=== PATIENT | female | born 1985 | race Caucasian/White ===

== ENCOUNTER 2016-08-25 19:02 | Emergency (ER) | payer OTHER, SELFPAY ==
[2016-08-25 20:09] LABS: Bilirubin Negative (Negative); Blood, Urine Trace (Negative); Glucose, Urine (Dipstick) Negative (Negative); Ketone, Urine 15 mg/dL (Negative); Nitrite Negative (Negative); Protein, Urine (Dipstick) Negative (Neg-Trace); Urobilinogen 0.2 mg/dL (0.2-1.0)
[2016-08-25 20:12] LABS: Bacteria/HPF None Seen HPF (None Seen); RBC/HPF 0-3 HPF (0-3); WBC/HPF 0-3 HPF (0-3)
--- NOTE | 2016-08-25 20:27 | ERRECORD ---
[facility] EMERGENCY RECORD HPI FLANK PAIN (19:38 [facility]) CHIEF COMPLAINT: Patient presents for evaluation of flank pain. HISTORIAN: History provided by patient, 31F presents with complaints of right flank, back, and RUQ pain. States that the pain started last night, improved in the morning, and then returned again later this afternoon. Describes it as a cramping squeezing band like pain around her right upper abdomen and right mid back. Denies nausea, vomiting, or diarrhea. Describes some hesitancy with urination, but denies dysuria. Denies chest pain or shortness of breath. LOCATION FEMALE: Symptoms are localized, most severe in the right upper quadrant. QUALITY: Pain is dull in nature, described as cramping. TIME COURSE: Sudden onset of symptoms, are intermittent. ASSOCIATED WITH FEMALE: Associated with flank pain, Associated with nausea, Associated with urinary tract infection signs or symptoms, hesitancy. EXACERBATED BY: Patient's condition exacerbated by food. RELIEVED BY: Patient's condition relieved by nothing because patient has not tried anything for relief. ROS (19:40 [facility]) CONSTITUTIONAL: Negative constitutional review of systems, Historian denies chills, denies fever. EYES: Negative eye review of systems, Historian denies eye pain, denies vision changes. ENT: Negative ears, nose, throat review of systems, Historian denies rhinorrhea, denies sore throat, denies voice changes. CARDIOVASCULAR: Negative cardiovascular review of systems, Historian denies chest pain, denies palpitations. RESPIRATORY: Negative respiratory review of systems, Historian denies cough, denies shortness of breath. GI: Historian reports abdominal pain, RUQ abdominal pain radiating to the right back. GENITOURINARY FEMALE: Historian denies dysuria, denies frequency, reports hesitancy. MUSCULOSKELETAL: Negative musculoskeletal review of systems, Historian denies back pain, denies fall, denies injury. SKIN: Negative skin review of systems, Historian denies rash, denies skin changes. NEUROLOGIC: Negative neurologic review of systems, Historian denies headache, denies mental status changes, denies paralysis, denies paresthesias, denies sensory changes. HEMO/LYMPHATIC: Normal hematologic/lymphatic system review, Historian denies abnormal blood clotting. ALLERGIC/IMMUNOLOGIC: Normal allergy/immunologic system review, Historian denies frequent infections. PAST MEDICAL HISTORY (19:20 [facility]) MEDICAL HISTORY: Flu vaccine up to date, Date of immunization: &a-1R&a+25V*p+0X*m7387R*c202B*c15G*c2P*p-0X&a-25V&a+1R Name: Debra lOmstead : 1985 F31 MedRec: [id number] AcctNum: [id number] Prepared: [facility] Aug 25, 2016 20:30 by Interface Page 1 of 4 pMD [facility] EMERGENCY RECORD 2016, Tetanus immunization up to date, Pneumococcal vaccine not up to date, Flu vaccine up to date, Date of immunization: 2013, Tetanus immunization up to date, Date of immunization: within last 10 years, Pneumococcal vaccine not up to date, Past medical history includes genitourinary history, urinary tract infection, Past medical history includes renal disease, kidney stone(s). Past medical history is not significant. 02/22/15. Reviewed 08/25/16. FEMALE SURGICAL HISTORY: Surgical history of appendectomy. Verified 02/22/15. Verified 08/25/16. PSYCHIATRIC HISTORY: Psychiatric history includes, depression, bipolar disorder, not currently under treatment Verified 02/22/15. Verified 08/25/16. SOCIAL HISTORY: Patient denies alcohol use, Patient denies drug use, Patient has no smoking history. Verified //. KNOWN ALLERGIES Cat/Feline Products (Unconfirmed): - Entered category: Cat/Feline Product Derivatives -- Entered category: Cat/Feline Product Derivatives -- SNEEZING Penicillins: Reaction: Rash, Severity: Moderate, Source: Patient CURRENT MEDICATIONS (19:15 [facility]) None VITAL SIGNS (19:15 [facility]) VITAL SIGNS: BP: 132/81, Pulse: 88 (Regular), Resp: 16 (Non-Labored), Temp: 98.3 (Oral), Pain: 9 (Intermittent), O2 sat: 98 on Room Air, Time: 08/25/2016 19:15. PHYSICAL EXAM (19:40 [facility]) CONSTITUTIONAL: Vital signs reviewed, Patient afebrile, Pulse normal, Blood pressure normal, Respiratory rate normal, Patient appears non toxic, Patient appears pain free, Patient alert and oriented to person, place and time. HEAD: Head exam normal, Head exam included findings of head atraumatic, normocephalic. EYES: Eye exam normal, Eye exam included findings of eyelids normal to inspection, Pupils equally round and reactive to light, Extraocular muscles intact, no nystagmus. ENT: ENT exam normal, Ear exam normal, external ear normal, tympanic membranes normal, no bleeding, Pharynx exam normal, Uvula exam normal, Tonsil exam normal, Mouth exam normal, mucous membranes moist, teeth normal. NECK: Neck exam normal, Neck exam included findings of normal range of motion, Trachea midline, no meningeal signs, no cervical adenopathy, no tenderness. RESPIRATORY CHEST: Respiratory and chest exam normal, Respiratory exam included findings of no respiratory distress, Breath sounds clear. CARDIOVASCULAR: Cardiovascular assessment normal, Cardiovascular &a-1R&a+25V*p+0X*h5369D*c202B*c15G*c2P*p-0X&a-25V&a+1R Name: Debra Olmstead : 1985 F31 MedRec: [id number] AcctNum: [id number] Prepared: Melanie Aug 25, 2016 20:30 by Interface Page 2 of 4 pMD [facility] EMERGENCY RECORD exam included findings of heart rate regular rate and rhythm, Heart sounds normal. ABDOMEN FEMALE: Abdominal exam included findings of abdomen tender, to the right upper quadrant, moderate intensity, Bowel sounds normal, no distension, no mass, no pulsatile masses, no peritoneal signs, no rigidity, no guarding, no rebound, Rovsing's sign absent. BACK: Back exam normal, Back exam included findings of normal inspection, range of motion normal, no tenderness. UPPER EXTREMITY: Upper extremity exam normal, Upper extremity exam included findings of inspection normal, Range of motion normal, Motor strength normal, Sensation intact, Radial pulse normal. LOWER EXTREMITY: Lower extremity exam normal, Lower extremity exam included findings of inspection normal, Range of motion normal, Motor strength normal, Sensation intact, Posterior tibial pulse normal, Pedal pulse normal. NEURO: Neuro exam normal, Neuro exam findings include patient oriented to person, place and time, Speech normal, Gait normal, Cranial nerves intact, no focal motor deficits, no focal sensory deficits. SKIN: Skin exam normal, Skin exam included findings of skin warm, dry, and normal in color, no rash. PSYCHIATRIC: Psychiatric exam normal, Normal affect. DOCTOR NOTES (20:20 [facility]) RE-EVALUATION: The patient's condition has improved. TEXT: Patient presented with concern for hepatobiliary pathology based on her history and physical exam. Secondary concern for pyelonephritis. Based on her physical exam findings, there was low concern for appendicitis or ovarian pathology. Bedside US showed a gallstone but no evidence of cholecystitis. Did not show any evidence of hydronephrosis, and her urine was not consistent with UTI or pyelo. It is possible she has a small kidney stone, but more likely that her pain is biliary colic. Provided counseling, appropriate for outpatient management. PATIENT STATUS: Patient has improved since arrival to emergency department. PATIENT PLAN: The patient will be discharged, The patient will follow up with primary care physician. DATA REVIEWED: Lab data reviewed, Xray data reviewed. PROBLEM LIST No recorded problems DIAGNOSIS (20:18 [facility]) FINAL: PRIMARY: biliary colic. PRESCRIPTION No recorded prescriptions &a-1R&a+25V*p+0X*f0069R*c202B*c15G*c2P*p-0X&a-25V&a+1R Name: Debra Olmstead : 1985 F31 MedRec: [id number] AcctNum: [id number] Prepared: MonAug 25, 2016 20:30 by Interface Page 3 of 4 pMD [facility] EMERGENCY RECORD DISPOSITION PATIENT: Disposition Type: Discharge, Disposition: *Discharge Home. [facility] Patient left the department. (20:24 [facility]) Simons: CFRA=ESTHELA Eaton, Maria Fernanda JC=MD Abena, Dawson MVIL=ESTHELA Umana, Clementine &a-1R&a+25V*p+0X*h2387A*c202B*c15G*c2P*p-0X&a-25V&a+1R Name: Debra Olmstead : 1985 F31 MedRec: [id number] AcctNum: [id number] Prepared: [facility] Aug 25, 2016 20:30 by Interface Page [address] [facility]
--- NOTE | 2016-08-25 20:32 | PICIS ---
[facility] EMERGENCY RECORD TRIAGE (19:24) PATIENT: PHONE: . (19:24) NAME: Debra Olmstead, AGE: 31, GENDER: female, : Melanie 1985, TIME OF GREET: MonAug 25, 2016 19:03, PREFERRED LANGUAGE: [place] Islander, ETHNICITY: Not or , ECODE BILLING MAP: [place], SSN: [id number], Zip Code: [address], KG WEIGHT: [phone] (est.), , , PERSON ID: [id number], PCP: None. (19:15 CFRA) PAYMENT: [facility] Self Pay. (19:42) COMPLAINT: abdominal, back pain. (19:15 [facility]) ADMISSION: URGENCY: 3 Urgent, ADMISSION SOURCE: Work, TRANSPORT: CAR, BED: -02. (19:15 [facility]) ASSESSMENT: Assessment: Pt reports pain on right side radiating from below ribs to the back. Dysuria. No vaginal discharge. Nausea, no vomiting. No fever or diarrhea. Pt denies burning urination or hematuria, Symptoms began yesterday. (19:20 [facility]) PAIN: Patient complains of pain described as, cramping, on a scale 0-10 patient rates pain as 9, Location right side upper abdomen to right flank, Pain is intermittent, Onset was yesterday, Aggravating factors:, Aggravating factors include sitting down, Relieving factors present, Relieving factors include standing up, Notes: Tylenol ES x2 tabs 4 hours [employer]. (19:20 [facility]) IMMUNIZATIONS: Flu vaccine up to date, Date of immunization: 2015, Tetanus immunization up to date, Date of immunization: w/in 10 years, Pneumococcal vaccine not up to date. (19:20 [facility]) SIRS SCORING: Heart Rate 55-109 (0), Temp range 96.8-101.1 (0), respiratory rate 12-24 (0), Mental Status altered: no (0). (19:20 [facility]) LMP: Last menstrual period: 08/05/2016. (19:20 [facility]) PROVIDERS: TRIAGE NURSE: Maria Fernanda Eaton RN. (19:15 [facility]) VITAL SIGNS: BP 132/81, Pulse 88, (Regular), Resp 16, (Non-Labored), Temp 98.3, (Oral), Pain 9, (Intermittent), O2 Sat 98, on Room Air, Time 08/25/2016 19:15. (19:15 CFRA) PREVIOUS VISIT ALLERGIES: Penicillins. (19:15 CFRA) Penicillins. (19:20 CFRA) KNOWN ALLERGIES Cat/Feline Products (Unconfirmed): - Entered category: Cat/Feline Product Derivatives -- Entered category: Cat/Feline Product Derivatives -- SNEEZING Penicillins: Reaction: Rash, Severity: Moderate, Source: Patient CURRENT MEDICATIONS (19:15 [facility]RA) None VITAL SIGNS (19:15 [facility]) VITAL SIGNS: BP: 132/81, Pulse: 88 (Regular), Resp: 16 (Non-Labored), Temp: 98.3 (Oral), Pain: 9 (Intermittent), O2 sat: 98 on Room Air, Time: 08/25/2016 19:15. &a-1R&a+25V*p+0X*n8333G*c202B*c15G*c2P*p-0X&a-25V&a+1R Name: Debra Olmstead : 1985 F31 MedRec: [id number] AcctNum: [id number] Prepared: [facility] Aug 25, 2016 20:36 by Interface Page [address] [facility] EMERGENCY RECORD NURSING PROCEDURE: DISCHARGE NOTE (20:22 [facility]) DISCHARGE: Patient discharged to home, ambulating without assistance, driving self, unaccompanied, Summary of Care printed/ provided, Patient requested and was provided an electronic copy of Discharge Instructions, Transition record given to patient, Discharge instructions given to patient, Above person(s) verbalized understanding of discharge instructions and follow-up care. BELONGINGS: Belongings and valuables with patient at time of discharge include:. ORDER DETAILS Order Name: Test, Urine (BHCG), Status: Active, Time: 19:37 08/25/2016, User: CFRA, - Ordered for: MD Kraft Jason, - Entered by: ESTHELA Eaton [place] - [facility] Aug 25, 2016 19:37, - Quantity: 1, Order Name: Urinalysis with Microscopic, Status: Active, Time: 19:37 08/25/2016, User: CFRA, - Ordered for: MD Kraft Jason, - Entered by: ESTHELA Eaton [place] - [facility] Aug 25, 2016 19:37, - Quantity: 1. HPI FLANK PAIN (19:38 [facility]) CHIEF COMPLAINT: Patient presents for evaluation of flank pain. HISTORIAN: History provided by patient, 31F presents with complaints of right flank, back, and RUQ pain. States that the pain started last night, improved in the morning, and then returned again later this afternoon. Describes it as a cramping squeezing band like pain around her right upper abdomen and right mid back. Denies nausea, vomiting, or diarrhea. Describes some hesitancy with urination, but denies dysuria. Denies chest pain or shortness of breath. LOCATION FEMALE: Symptoms are localized, most severe in the right upper quadrant. QUALITY: Pain is dull in nature, described as cramping. TIME COURSE: Sudden onset of symptoms, are intermittent. ASSOCIATED WITH FEMALE: Associated with flank pain, Associated with nausea, Associated with urinary tract infection signs or symptoms, hesitancy. EXACERBATED BY: Patient's condition exacerbated by food. RELIEVED BY: Patient's condition relieved by nothing because patient has not tried anything for relief. ROS (19:40 [facility]) CONSTITUTIONAL: Negative constitutional review of systems, Historian denies chills, denies fever. EYES: Negative eye review of systems, Historian denies eye pain, denies vision changes. &a-1R&a+25V*p+0X*a8302B*c202B*c15G*c2P*p-0X&a-25V&a+1R Name: Debra Olmstead : 1985 F31 MedRec: [id number] AcctNum: [id number] Prepared: Melanie Aug 25, 2016 20:36 by Interface Page [address] [facility] EMERGENCY RECORD ENT: Negative ears, nose, throat review of systems, Historian denies rhinorrhea, denies sore throat, denies voice changes. CARDIOVASCULAR: Negative cardiovascular review of systems, Historian denies chest pain, denies palpitations. RESPIRATORY: Negative respiratory review of systems, Historian denies cough, denies shortness of breath. GI: Historian reports abdominal pain, RUQ abdominal pain radiating to the right back. GENITOURINARY FEMALE: Historian denies dysuria, denies frequency, reports hesitancy. MUSCULOSKELETAL: Negative musculoskeletal review of systems, Historian denies back pain, denies fall, denies injury. SKIN: Negative skin review of systems, Historian denies rash, denies skin changes. NEUROLOGIC: Negative neurologic review of systems, Historian denies headache, denies mental status changes, denies paralysis, denies paresthesias, denies sensory changes. HEMO/LYMPHATIC: Normal hematologic/lymphatic system review, Historian denies abnormal blood clotting. ALLERGIC/IMMUNOLOGIC: Normal allergy/immunologic system review, Historian denies frequent infections. PAST MEDICAL HISTORY (19:20 [facility]) MEDICAL HISTORY: Flu vaccine up to date, Date of immunization: 2015, Tetanus immunization up to date, Pneumococcal vaccine not up to date, Flu vaccine up to date, Date of immunization: 2013, Tetanus immunization up to date, Date of immunization: within last 10 years, Pneumococcal vaccine not up to date, Past medical history includes genitourinary history, urinary tract infection, Past medical history includes renal disease, kidney stone(s). Past medical history is not significant. 02/22/15. Reviewed 08/25/16. FEMALE SURGICAL HISTORY: Surgical history of appendectomy. Verified 02/22/15. Verified 08/25/16. PSYCHIATRIC HISTORY: Psychiatric history includes, depression, bipolar disorder, not currently under treatment Verified 02/22/15. Verified 08/25/16. SOCIAL HISTORY: Patient denies alcohol use, Patient denies drug use, Patient has no smoking history. Verified //. PHYSICAL EXAM (19:40 [facility]) CONSTITUTIONAL: Vital signs reviewed, Patient afebrile, Pulse normal, Blood pressure normal, Respiratory rate normal, Patient appears non toxic, Patient appears pain free, Patient alert and oriented to person, place and time. HEAD: Head exam normal, Head exam included findings of head atraumatic, normocephalic. EYES: Eye exam normal, Eye exam included findings of eyelids normal to inspection, Pupils equally round and reactive to light, Extraocular muscles intact, no nystagmus. ENT: ENT exam normal, Ear exam normal, external ear normal, &a-1R&a+25V*p+0X*q2875T*c202B*c15G*c2P*p-0X&a-25V&a+1R Name: Debra Olmstead : 1985 F31 MedRec: [id number] AcctNum: [id number] Prepared: MonAug 25, 2016 20:36 by Interface Page [address] [facility] EMERGENCY RECORD tympanic membranes normal, no bleeding, Pharynx exam normal, Uvula exam normal, Tonsil exam normal, Mouth exam normal, mucous membranes moist, teeth normal. NECK: Neck exam normal, Neck exam included findings of normal range of motion, Trachea midline, no meningeal signs, no cervical adenopathy, no tenderness. RESPIRATORY CHEST: Respiratory and chest exam normal, Respiratory exam included findings of no respiratory distress, Breath sounds clear. CARDIOVASCULAR: Cardiovascular assessment normal, Cardiovascular exam included findings of heart rate regular rate and rhythm, Heart sounds normal. ABDOMEN FEMALE: Abdominal exam included findings of abdomen tender, to the right upper quadrant, moderate intensity, Bowel sounds normal, no distension, no mass, no pulsatile masses, no peritoneal signs, no rigidity, no guarding, no rebound, Rovsing's sign absent. BACK: Back exam normal, Back exam included findings of normal inspection, range of motion normal, no tenderness. UPPER EXTREMITY: Upper extremity exam normal, Upper extremity exam included findings of inspection normal, Range of motion normal, Motor strength normal, Sensation intact, Radial pulse normal. LOWER EXTREMITY: Lower extremity exam normal, Lower extremity exam included findings of inspection normal, Range of motion normal, Motor strength normal, Sensation intact, Posterior tibial pulse normal, Pedal pulse normal. NEURO: Neuro exam normal, Neuro exam findings include patient oriented to person, place and time, Speech normal, Gait normal, Cranial nerves intact, no focal motor deficits, no focal sensory deficits. SKIN: Skin exam normal, Skin exam included findings of skin warm, dry, and normal in color, no rash. PSYCHIATRIC: Psychiatric exam normal, Normal affect. LAB INTERPRETATION (20:20 [facility]) INTERPRETATION: I reviewed the lab results, Urinalysis normal, contaminated UA,. EVENTS TRANSFER: Triage to Emergency Emergency Room -. ([facility] Aug 25, 2016 19:15 CFRA) Removed from Emergency Emergency Room -02. (20:24 [place]) DOCTOR NOTES (20:20 [facility]) RE-EVALUATION: The patient's condition has improved. TEXT: Patient presented with concern for hepatobiliary pathology based on her history and physical exam. Secondary concern for pyelonephritis. Based on her physical exam findings, there was low concern for appendicitis or ovarian pathology. Bedside US showed a gallstone but no evidence of cholecystitis. Did not show any &a-1R&a+25V*p+0X*u2013W*c202B*c15G*c2P*p-0X&a-25V&a+1R Name: Debra Olmstead : 1985 F31 MedRec: [id number] AcctNum: [id number] Prepared: Melanie Aug 25, 2016 20:36 by Interface Page [address] [facility] EMERGENCY RECORD evidence of hydronephrosis, and her urine was not consistent with UTI or pyelo. It is possible she has a small kidney stone, but more likely that her pain is biliary colic. Provided counseling, appropriate for outpatient management. PATIENT STATUS: Patient has improved since arrival to emergency department. PATIENT PLAN: The patient will be discharged, The patient will follow up with primary care physician. DATA REVIEWED: Lab data reviewed, Xray data reviewed. PROBLEM LIST No recorded problems DIAGNOSIS (20:18 [facility]) FINAL: PRIMARY: biliary colic. DISPOSITION PATIENT: Disposition Type: Discharge, Disposition: *Discharge Home. (20:18 [facility]) Patient left the department. (20:24 [facility]) INSTRUCTION (20:18 [facility]) DISCHARGE: BILIARY COLIC W/GALLSTONE (PRESUMD). SPECIAL: Avoid fatty foods. Drink more water, follow up with your primary doctor. Return to the ED if your pain worsens or changes. PRESCRIPTION No recorded prescriptions IMAGING *DISCHARGE INSTRUCTIONS RECEIPT: Image captured from scanner. (20:25 MVIL) *SUPPLY CHARGE SHEET: Image captured from scanner. (20:26 MVIL) ADMIN (20:22 [facility]) DIGITAL SIGNATURE: MD Kraft Jason. Simons: CFRA=ESTHELA Eaton, Maria Fernanda JJAC=MD Kraft Jason MVIL=ESTHELA Umana Mariella &a-1R&a+25V*p+0X*z7927M*c202B*c15G*c2P*p-0X&a-25V&a+1R Name: Debra Olmstead : 1985 F31 MedRec: [id number] AcctNum: [id number] Prepared: Melanie Aug 25, 2016 20:36 by Interface Page 5 of 5 pMD [facility]TDD
== END 2016-08-25 20:17 | disposition home or self-care (01) ==
LOC: BURERS 19:02
DX: K80.50 Calculus of bile duct without cholangitis or cholecystitis without obstruction (principal); F31.9 Bipolar disorder, unspecified; Z90.49 Acquired absence of other specified parts of digestive tract; Z87.442 Personal history of urinary calculi
CPT/HCPCS: 81001; 81025; 99284

== ENCOUNTER 2016-12-26 08:36 | Emergency (ER) | payer OTHER, SELFPAY ==
[2016-12-26] MEDS ORDERED: Bupivacaine 0.5% 10 ML VIAL ONE (08:50)
== END 2016-12-26 09:19 | disposition home or self-care (01) ==
LOC: BURERS 08:36
DX: K04.7 Periapical abscess without sinus (principal); F31.9 Bipolar disorder, unspecified
CPT/HCPCS: 96372; J3490

== ENCOUNTER 2017-05-26 19:33 | Emergency (ER) | payer SELFPAY ==
[2017-05-26 20:39] LABS: Bilirubin Negative (Negative); Blood, Urine Trace (Negative); Clarity Slightly Cloudy (Clear); Glucose, Urine (Dipstick) Negative (Negative); Leukocyte Moderate (Negative); Nitrite Negative (Negative); Protein, Urine (Dipstick) Negative (Neg-Trace); Specific Gravity, Urine 1.025 (1.005-1.030); Urobilinogen 0.2 mg/dL (0.2-1.0); pH, Urine 5.5 (5.0-9.0)
[2017-05-26 20:41] LABS: Bacteria/HPF 1+ HPF (None Seen); Crystals/HPF None Seen HPF (Negative); Hyaline Casts/LPF NONE SEEN LPF (0-3 Hyaline); Oval Fat Bodies/HPF None Seen HPF (None Seen); RBC/HPF 0-3 HPF (0-3); Renal Epithelial None Seen HPF (0-3); Sperm/HPF None Seen HPF (None Seen); Transitional Epithelial NONE SEEN HPF (0-3); Trichomonas/HPF None Seen HPF (None Seen); Yeast-All Forms None Seen HPF (None Seen)
[2017-05-26 20:42] LABS: Other Casts/LPF None Seen LPF (0-3 Hyaline); Pregnancy Test - Urine (BHCG) Negative (Negative)
[2017-05-26 20:43] LABS: Pregu Control Background? CLEAR/WHITE (CLR/WHITE); Pregu Control Bar Appear? YES (CONTROL BAR); Specific Gravity 1.025 (1.002-1.036)
[2017-05-26] MEDS ORDERED: Cephalexin 250 MG CAP ONE (21:07)
[2017-05-26 21:13] LABS: ALT (SGPT) 15 U/L (8-55); AST (SGOT) 13 U/L (5-34); Albumin 4.1 g/dL (3.5-5.0); Alkaline Phosphatase 75 U/L (40-150); Anion Gap 15 mmol/L (10-20); BUN (Urea Nitrogen) 13 mg/dL (7.0-18.7); Bilirubin, Total 0.2 mg/dL (0.2-1.2); Calc. Creatinine Clearance 0 mL/min (70-130); Calcium 9.1 mg/dL (7.8-10.44); Carbon Dioxide 21 mmol/L (22-29); Chloride 110 mmol/L (98-107); Estimated GFR-MDRD Greater than 90; Glucose 112 mg/dL (70-105); Potassium 3.5 mmol/L (3.5-5.1); Protein, Total 7.1 g/dL (6.0-8.3); Sodium 142 mmol/L (136-145)
[2017-05-26 21:22] LABS: #Basophils 0.1 thou/uL (0.0-0.2); #Eosinphils 0.2 thou/uL (0.0-0.7); #Monocytes 0.5 thou/uL (0.11-0.59); #Neutrophils 6.9 thou/uL (1.40-6.50); %Basophils 0.8 % (0.0-1.0); %Lymphocytes 20.6 % (21.0-51.0); %Monocytes 4.8 % (0.0-10.0); %Neutrophils 71.8 % (42.0-75.0); Hemoglobin 10.4 g/dL (12.0-16.0); MDiff Complete? YES; Mean Corpuscular HGB CONC 30.7 g/dL (32.0-36.0); Mean Corpuscular Hemoglobin 23.4 pg (27.0-31.0); Mean Corpuscular Volume 76.3 fl (81.0-99.0); Mean Platelet Volume 6.5 fL (7.4-10.4); Microcytosis SLIGHT = 6-15 cells (100X) (0-5/hpf); Ovalocytes SLIGHT = 2-5 cells (100X) (0-1/hpf); PLT Morphology Comment Appears Adequate; Platelet Count 327 thou/uL (130-400); RBC Distribution Width 14.1 % (11.5-14.5); Red Blood Cell (RBC) Count 4.44 mill/uL (4.20-5.40); Small Platelets SLIGHT; White Blood Cell (WBC) Count 9.7 thou/uL (4.8-10.8)
== END 2017-05-26 21:58 | disposition home or self-care (01) ==
LOC: BURERS 19:33
DX: D64.9 Anemia, unspecified (principal); N39.0 Urinary tract infection, site not specified; F31.9 Bipolar disorder, unspecified
CPT/HCPCS: 80053; 81003; 81015; 81025; 85025; 96360

== ENCOUNTER 2017-06-26 07:49 | Emergency (ER) | payer SELFPAY ==
[2017-06-26] MEDS ORDERED: Ketorolac Tromethamine 30 MG/ML VIAL ONE (08:14)
[2017-06-26 08:16] LABS: Bilirubin Negative (Negative); Blood, Urine Trace (Negative); Clarity Slightly Cloudy (Clear); Glucose, Urine (Dipstick) Negative (Negative); Leukocyte Small (Negative); Nitrite Negative (Negative); Protein, Urine (Dipstick) Negative (Neg-Trace); Urobilinogen 0.2 mg/dL (0.2-1.0); pH, Urine 5.5 (5.0-9.0)
[2017-06-26 08:17] LABS: Pregnancy Test - Urine (BHCG) Negative (Negative); Pregu Control Background? CLEAR/WHITE (CLR/WHITE); Pregu Control Bar Appear? YES (CONTROL BAR)
[2017-06-26 08:25] LABS: Bacteria/HPF 1+ HPF (None Seen); Crystals/HPF 1+ AMORPH URATES HPF (Negative); RBC/HPF 0-3 HPF (0-3)
[2017-06-26 08:34] LABS: #Basophils 0.1 thou/uL (0.0-0.2); #Eosinphils 0.1 thou/uL (0.0-0.7); #Lymphocytes 1.4 thou/uL (1.20-3.40); #Neutrophils 15.9 thou/uL (1.40-6.50); %Basophils 0.4 % (0.0-1.0); %Eosinophils 0.3 % (0.0-10.0); %Lymphocytes 7.6 % (21.0-51.0); %Monocytes 5.4 % (0.0-10.0); %Neutrophils 86.3 % (42.0-75.0); Hemoglobin 10.9 g/dL (12.0-16.0); Mean Corpuscular HGB CONC 30.4 g/dL (32.0-36.0); Mean Corpuscular Hemoglobin 23.3 pg (27.0-31.0); Mean Corpuscular Volume 76.4 fl (81.0-99.0); Mean Platelet Volume 6.4 fL (7.4-10.4); Platelet Count 371 thou/uL (130-400); RBC Distribution Width 14.3 % (11.5-14.5); White Blood Cell (WBC) Count 18.4 thou/uL (4.8-10.8)
[2017-06-26 08:42] LABS: ALT (SGPT) 16 U/L (8-55); AST (SGOT) 12 U/L (5-34); Albumin 4.2 g/dL (3.5-5.0); Alkaline Phosphatase 83 U/L (40-150); Anion Gap 12 mmol/L (10-20); BUN (Urea Nitrogen) 11 mg/dL (7.0-18.7); Bilirubin, Total 0.4 mg/dL (0.2-1.2); Calc. Creatinine Clearance 0 mL/min (70-130); Calcium 8.9 mg/dL (7.8-10.44); Carbon Dioxide 25 mmol/L (22-29); Chloride 105 mmol/L (98-107); Estimated GFR-MDRD Greater than 90; Globulin 3.6 g/dL (2.4-3.5); Glucose 107 mg/dL (70-105); Lipase 11 U/L (8-78); Potassium 3.7 mmol/L (3.5-5.1); Protein, Total 7.8 g/dL (6.0-8.3); Sodium 138 mmol/L (136-145)
[2017-06-26 08:54] LABS: MDiff Complete? YES; Microcytosis SLIGHT = 6-15 cells (100X) (0-5/hpf); PLT Morphology Comment Appears Adequate
[2017-06-26] MEDS ORDERED: Doxycycline Hyclate 100 MG TAB ONE (08:57)
[2017-06-26] MEDS ORDERED: cefTRIAXone\\ROCEPHIN 500 MG VIAL ONE (08:57)
[2017-06-26] MEDS ORDERED: Sterile Water 10 ML ONE (08:59)
== END 2017-06-26 10:23 | disposition home or self-care (01) ==
LOC: BURERS 07:49
DX: N73.9 Female pelvic inflammatory disease, unspecified (principal)
CPT/HCPCS: 36415; 80053; 81003; 81015; 81025; 83605; 83690; 84443; 85025; 87040; 87480; 87491; 87510; 87591; 87660; 96361; 96374; 96375; A4216; J0696; J1885

== ENCOUNTER 2020-06-30 22:04 | Emergency (ER) | payer SELFPAY ==
[2020-06-30] MEDS ORDERED: Sodium Chloride 0.9% 0 ML ONE (22:33)
[2020-06-30] MEDS ORDERED: Metoclopramide HCl 10 MG/2 ML VIAL ONE (22:33)
[2020-06-30] MEDS ORDERED: Ketorolac Tromethamine 30 MG/ML VIAL ONE (22:33)
[2020-06-30] MEDS ORDERED: diphenhydrAMINE 50 MG/ML VIAL ONE (22:34)
[2020-06-30 22:56] LABS: #Basophils 0.1 thou/uL (0.0-0.2); #Eosinphils 0.2 thou/uL (0.0-0.7); #Lymphocytes 2.6 thou/uL (1.20-3.40); #Monocytes 0.6 thou/uL (0.11-0.59); #Neutrophils 6.1 thou/uL (1.40-6.50); %Basophils 0.9 % (0.0-1.0); %Eosinophils 2.3 % (0.0-10.0); %Lymphocytes 27.5 % (21.0-51.0); %Monocytes 5.9 % (0.0-10.0); %Neutrophils 63.4 % (42.0-75.0); Hemoglobin 12.2 g/dL (12.0-16.0); Mean Corpuscular HGB CONC 30.4 g/dL (32.0-36.0); Mean Corpuscular Hemoglobin 26.2 pg (27.0-31.0); Mean Corpuscular Volume 85.9 fL (78.0-98.0); Mean Platelet Volume 7.1 fL (7.4-10.4); Platelet Count 371 thou/uL (130-400); RBC Distribution Width 14.9 % (11.5-14.5); Red Blood Cell (RBC) Count 4.64 mill/uL (4.20-5.40); White Blood Cell (WBC) Count 9.6 thou/uL (4.8-10.8)
[2020-06-30 23:03] LABS: BHCG - Serum Negative (NEGATIVE); Pregs Control Background? CLEAR/WHITE (CLR/WHITE); Pregs Control Bar Appear? YES (CONTROL BAR)
[2020-06-30 23:08] LABS: ALT (SGPT) 12 U/L (8-55); AST (SGOT) 11 U/L (5-34); Albumin 4.1 g/dL (3.5-5.0); Alkaline Phosphatase 70 U/L (40-110); Anion Gap 17 mmol/L (10-20); BUN (Urea Nitrogen) 10 mg/dL (7.0-18.7); Bilirubin, Total Less than 0.2 mg/dL (0.2-1.2); Calc. Creatinine Clearance 0 mL/min (70-130); Calcium 8.7 mg/dL (7.8-10.44); Carbon Dioxide 24 mmol/L (22-29); Chloride 106 mmol/L (98-107); Globulin 3.3 g/dL (2.4-3.5); Glucose 91 mg/dL (70-105); Potassium 3.5 mmol/L (3.5-5.1); Protein, Total 7.4 g/dL (6.0-8.3); Sodium 143 mmol/L (136-145)
== END 2020-07-01 00:18 | disposition home or self-care (01) ==
LOC: BURERS 22:04
DX: G43.909 Migraine, unspecified, not intractable, without status migrainosus (principal); D64.9 Anemia, unspecified
CPT/HCPCS: 80053; 84703; 85025; 96374; 96375; J1200; J1885; J2765; J3490

== ENCOUNTER 2021-03-11 20:02 | Emergency (ER) | payer SELFPAY ==
[2021-03-12 19:17] LABS: SARS-CoV-2 PCR by NAA DETECTED (NotDetected)
== END 2021-03-11 20:45 | disposition home or self-care (01) ==
LOC: BURERS 20:02
DX: U07.1 COVID-19 (principal)
CPT/HCPCS: 99283; U0003; U0005

== ENCOUNTER 2022-02-25 17:26 | Emergency (ER) | payer OTHER ==
[2022-02-25] MEDS ORDERED: Iopamidol 370 76% 100 ML VIAL FS ONE (17:27)
[2022-02-25 18:28] LABS: ALT (SGPT) 17 U/L (8-55); AST (SGOT) 11 U/L (5-34); Albumin 4.1 g/dL (3.5-5.0); Alkaline Phosphatase 82 U/L (40-110); Anion Gap 14 mmol/L (10-20); BUN (Urea Nitrogen) 9 mg/dL (7.0-18.7); Bilirubin, Total Less than 0.2 mg/dL (0.2-1.2); Calc. Creatinine Clearance 0 mL/min (70-130); Calcium 8.7 mg/dL (7.8-10.44); Carbon Dioxide 22 mmol/L (22-29); Chloride 109 mmol/L (98-107); Estimated GFR 115; Globulin 3.1 g/dL (2.4-3.5); Glucose 108 mg/dL (70-105); Lipase 19 U/L (8-78); Potassium 3.8 mmol/L (3.5-5.1); Protein, Total 7.2 g/dL (6.0-8.3); Sodium 141 mmol/L (136-145)
[2022-02-25 18:34] LABS: BHCG - Serum Negative (NEGATIVE); Pregs Control Background? CLEAR/WHITE (CLR/WHITE); Pregs Control Bar Appear? YES (CONTROL BAR)
[2022-02-25 18:43] LABS: Hemoglobin 11.6 g/dL (12.0-16.0); Mean Corpuscular HGB CONC 30.2 g/dL (32.0-36.0); Mean Corpuscular Hemoglobin 24.9 pg (27.0-31.0); Mean Corpuscular Volume 82.5 fL (78.0-98.0); Mean Platelet Volume 6.9 fL (7.4-10.4); Platelet Count 331 thou/uL (130-400); RBC Distribution Width 16.5 % (11.5-14.5); Red Blood Cell (RBC) Count 4.63 mill/uL (4.20-5.40); White Blood Cell (WBC) Count 8.2 thou/uL (4.8-10.8)
[2022-02-25 18:44] LABS: Bilirubin Negative (Negative); Blood, Urine Negative (Negative); Clarity Clear (Clear); Glucose, Urine (Dipstick) Negative (Negative); Ketone, Urine Trace mg/dL (Negative); Leukocyte Negative (Negative); Nitrite Negative (Negative); Protein, Urine (Dipstick) Trace mg/dL (Neg-Trace); Specific Gravity, Urine 1.025 (1.005-1.030); Urobilinogen 0.2 mg/dL (Less than 2)
[2022-02-25] MEDS ORDERED: Ondansetron PF 4 MG/2 ML Vial ONE (18:48)
[2022-02-25] MEDS ORDERED: Pantoprazole 40 MG VIAL ONE (18:49)
[2022-02-25 19:09] LABS: #Basophils 0.1 thou/uL (0.0-0.2); #Eosinphils 0.2 thou/uL (0.0-0.7); #Monocytes 0.5 thou/uL (0.11-0.59); #Neutrophils 5.5 thou/uL (1.40-6.50); %Basophils 0.7 % (0.0-1.0); %Eosinophils 2.4 % (0.0-10.0); %Lymphocytes 23.7 % (21.0-51.0); %Monocytes 5.8 % (0.0-10.0); %Neutrophils 67.4 % (42.0-75.0)
[2022-02-25 19:10] LABS: Anisocytosis SLIGHT = 6-15 cells (100X) (0-5/hpf); MDiff Complete? YES; Ovalocytes SLIGHT = 2-5 cells (100X) (0-1/hpf)
[2022-02-25] MEDS ORDERED: Morphine 4 MG/ML VIAL ONE (19:21)
[2022-02-25] MEDS ORDERED: Ketorolac Tromethamine 30 MG/ML VIAL ONE (20:33)
== END 2022-02-25 21:16 | disposition home or self-care (01) ==
LOC: BURERS 17:26
DX: K76.0 Fatty (change of) liver, not elsewhere classified (principal); M46.1 Sacroiliitis, not elsewhere classified
CPT/HCPCS: 36415; 74177; 80053; 81003; 83690; 84703; 85025; 96361; 96374; 96375; C9113; J1885; J2270; J2405; Q9967

== ENCOUNTER 2023-03-01 09:15 | Emergency (ER) | payer MEDICAID, OTHER ==
[2023-03-01 09:41] LABS: Bilirubin Negative (Negative); Blood, Urine Large (Negative); Glucose, Urine (Dipstick) Negative (Negative); Ketone, Urine Negative (Negative); Leukocyte Negative (Negative); Nitrite Negative (Negative); Protein, Urine (Dipstick) 30 mg/dL (Neg-Trace); Specific Gravity, Urine 1.025 (1.005-1.030); Urobilinogen 0.2 mg/dL (Less than 2); pH, Urine 5.5 (5.0-9.0)
[2023-03-01 09:51] LABS: Bacteria/HPF 1+ HPF (None Seen); CAUTI Indications for Culture Dysuria,urgency,freq; Clarity Hazy (Clear); Squamous Epithelial 0-3 HPF (0-3); WBC/HPF 0-3 HPF (0-3); Yeast-Budding 3+ HPF (None Seen)
[2023-03-01 09:52] LABS: Pregnancy Test - Urine (BHCG) Negative (Negative); Pregu Control Background? CLEAR/WHITE (CLR/WHITE); Pregu Control Bar Appear? YES (CONTROL BAR); Specific Gravity 1.025 (1.002-1.036); Urine Culture Reflex No No
[2023-03-01] MEDS ORDERED: Ondansetron PF 4 MG/2 ML Vial ONE (10:06)
[2023-03-01] MEDS ORDERED: Morphine 4 MG/ML VIAL ONE (10:08)
[2023-03-01 10:19] LABS: #Eosinphils 0.1 thou/uL (0.0-0.7); #Lymphocytes 1.3 thou/uL (1.20-3.40); #Monocytes 0.3 thou/uL (0.11-0.59); #Neutrophils 5.6 thou/uL (1.40-6.50); %Basophils 0.5 % (0.0-1.0); %Monocytes 3.4 % (0.0-10.0); %Neutrophils 76.2 % (42.0-75.0); Anisocytosis SLIGHT = 6-15 cells (100X) (0-5/hpf); Hemoglobin 11.2 g/dL (12.0-16.0); MDiff Complete? YES; Mean Corpuscular HGB CONC 30.1 g/dL (32.0-36.0); Mean Corpuscular Hemoglobin 24.4 pg (27.0-31.0); Mean Corpuscular Volume 81.3 fl (78.0-98.0); Mean Platelet Volume 6.8 fL (7.4-10.4); Platelet Count 293 10x3/uL (130-400); Poikilocytosis SLIGHT = 6-15 cells (100X) (0-5/hpf); RBC Distribution Width 22.1 % (11.5-14.5); Red Blood Cell (RBC) Count 4.56 mill/uL (4.20-5.40); Tear Drops SLIGHT = 2-5 cells (100X) (0-1/hpf); White Blood Cell (WBC) Count 7.3 10x3/uL (4.8-10.8)
[2023-03-01 10:26] LABS: ALT (SGPT) 29 U/L (8-55); AST (SGOT) 16 U/L (5-34); Albumin 4.1 g/dL (3.5-5.0); Alkaline Phosphatase 91 U/L (40-110); Anion Gap 16 mmol/L (10-20); BUN (Urea Nitrogen) 8 mg/dL (7.0-18.7); Bilirubin, Total 0.2 mg/dL (0.2-1.2); Calc. Creatinine Clearance 0 mL/min (70-130); Calcium 8.7 mg/dL (7.8-10.44); Carbon Dioxide 23 mmol/L (22-29); Chloride 107 mmol/L (98-107); Estimated GFR 110; Globulin 2.9 g/dL (2.4-3.5); Glucose 142 mg/dL (70-105); Lipase 13 U/L (8-78); Potassium 3.7 mmol/L (3.5-5.1); Sodium 142 mmol/L (136-145)
== END 2023-03-01 14:07 | disposition home or self-care (01) ==
LOC: BURERS 09:15
DX: M54.9 Dorsalgia, unspecified (principal); E87.20 Acidosis, unspecified; D64.9 Anemia, unspecified
CPT/HCPCS: 74176; 80053; 81001; 81025; 83605; 83690; 85025; 96374; 96375; J2270; J2405

== ENCOUNTER 2023-04-17 13:12 | Emergency (ER) | payer MEDICAID, OTHER ==
[2023-04-17 13:55] LABS: #Basophils 0.1 thou/uL (0.0-0.2); #Eosinphils 0.2 thou/uL (0.0-0.7); #Monocytes 0.5 thou/uL (0.11-0.59); #Neutrophils 5.2 thou/uL (1.40-6.50); %Eosinophils 2.6 % (0.0-10.0); %Lymphocytes 24.2 % (21.0-51.0); %Monocytes 5.7 % (0.0-10.0); %Neutrophils 66.5 % (42.0-75.0); Hematocrit 35.6 % (36.0-47.0); Hemoglobin 10.7 g/dL (12.0-16.0); Mean Corpuscular HGB CONC 30.1 g/dL (32.0-36.0); Mean Corpuscular Hemoglobin 24.7 pg (27.0-31.0); Mean Corpuscular Volume 82.1 fl (78.0-98.0); Mean Platelet Volume 6.5 fL (7.4-10.4); Platelet Count 382 10x3/uL (130-400); RBC Distribution Width 17.1 % (11.5-14.5); Red Blood Cell (RBC) Count 4.33 mill/uL (4.20-5.40); White Blood Cell (WBC) Count 7.8 10x3/uL (4.8-10.8)
[2023-04-17 13:56] LABS: Ovalocytes SLIGHT = 2-5 cells (100X) (0-1/hpf)
[2023-04-17 13:57] LABS: Tear Drops SLIGHT = 2-5 cells (100X) (0-1/hpf)
[2023-04-17 13:58] LABS: MDiff Complete? YES; Manual Diff?? NO
[2023-04-17 14:08] LABS: Troponin I Less than 0.010 ng/mL (< 0.028)
[2023-04-17 14:12] LABS: ALT (SGPT) 26 U/L (8-55); AST (SGOT) 20 U/L (5-34); Albumin 4.2 g/dL (3.5-5.0); Alkaline Phosphatase 90 U/L (40-110); Anion Gap 15 mmol/L (10-20); BUN (Urea Nitrogen) 10 mg/dL (7.0-18.7); Bilirubin, Total 0.2 mg/dL (0.2-1.2); Calc. Creatinine Clearance 0 mL/min (70-130); Calcium 8.7 mg/dL (7.8-10.44); Carbon Dioxide 23 mmol/L (22-29); Chloride 106 mmol/L (98-107); Estimated GFR 110; Globulin 2.9 g/dL (2.4-3.5); Glucose 82 mg/dL (70-105); Lipase 16 U/L (8-78); Potassium 3.9 mmol/L (3.5-5.1); Protein, Total 7.1 g/dL (6.0-8.3); Sodium 140 mmol/L (136-145)
== END 2023-04-17 14:36 | disposition home or self-care (01) ==
LOC: BURERS 13:12
DX: R07.89 Other chest pain (principal); I10 Essential (primary) hypertension
CPT/HCPCS: 71045; 80053; 83690; 84484; 85025; 93005

== ENCOUNTER 2024-01-10 15:53 | Emergency (ER) | payer BC | END 2024-01-10 16:16 | disposition home or self-care (01) | LOC: BURERS 15:53 | DX: H00.034 Abscess of left upper eyelid (principal) | CPT/HCPCS: 99283 ==